=== PATIENT | male | born 1955 | race Native Hawaiian/Other Pacific Islander ===

== ENCOUNTER 2018-07-15 14:57 | Outpatient (CLI) | payer OTHER, BC ==
[2018-07-15 15:50] LABS: PLATELET COUNT 168 K/uL (142-355)
== END 2018-07-15 19:43 | disposition home or self-care (01) ==
LOC: LABW 14:57
PROVIDERS: Internal Medicine
DX: R50.9 Fever, unspecified (principal)
CPT/HCPCS: 36415; 80053; 85027; 85651; 86140; 87040; 87077; 87086; 87088; 87186; 87502

== ENCOUNTER 2019-10-21 08:14 | Outpatient (CLI) | payer OTHER, BC | END 2019-10-21 21:20 | disposition home or self-care (01) | LOC: LAB 08:14 | DX: Z20.828 Contact with and (suspected) exposure to other viral communicable diseases (principal) | CPT/HCPCS: 87635; G2023; U00003 ==

== ENCOUNTER 2021-05-09 12:08 | Outpatient (CLI) | payer BC, OTHER | END 2021-05-09 19:16 | disposition home or self-care (01) | LOC: LAB 12:08 | PROVIDERS: ATTEND Internal Medicine | DX: Z20.822 Contact with and (suspected) exposure to COVID-19 (principal) | CPT/HCPCS: 87635; G2023; U0003 ==

== ENCOUNTER 2022-01-18 07:33 | Outpatient (CLI) | payer BC | END 2022-01-18 18:56 | disposition home or self-care (01) | LOC: LABW 07:33 | PROVIDERS: ATTEND Internal Medicine | DX: R73.9 Hyperglycemia, unspecified (principal) | CPT/HCPCS: 36415; 82951; 82952; 83036 ==

== ENCOUNTER 2022-04-14 12:01 | Outpatient (CLI) | payer BC ==
[2022-04-14 13:02] LABS: POTASSIUM 3.8 mmol/L (3.6-5.2)
[2022-04-14 13:09] LABS: PLATELET COUNT 165 K/uL (142-355)
== END 2022-04-14 19:17 | disposition home or self-care (01) ==
LOC: LABW 12:01
PROVIDERS: ATTEND Internal Medicine
DX: N18.31 Chronic kidney disease, stage 3a (principal); R53.83 Other fatigue; E53.8 Deficiency of other specified B group vitamins; R79.89 Other specified abnormal findings of blood chemistry
CPT/HCPCS: 36415; 80053; 81002; 82043; 82306; 82330; 82570; 82607; 82728; 82746; 83036; 83540; 83550; 83735; 83970; 84100; 84156; 84439; 84443; 85027; 85652; 86038; 86431

== ENCOUNTER 2022-07-21 08:48 | Outpatient (CLI) | payer BC ==
[2022-07-21 09:03] LABS: PLATELET COUNT 168 K/uL (142-355)
[2022-07-21 09:20] LABS: POTASSIUM 3.9 mmol/L (3.6-5.2)
== END 2022-07-21 19:12 | disposition home or self-care (01) ==
LOC: LABW 08:48 → MRI 10:00 → LABW 19:12
PROVIDERS: ATTEND Internal Medicine
DX: R51.9 Headache, unspecified (principal)
CPT/HCPCS: 36415; 80053; 85027; 85652

== ENCOUNTER 2023-01-01 16:26 | Outpatient (CLI) | payer BC | END 2023-01-01 19:20 | disposition home or self-care (01) | LOC: RAD 16:26 | PROVIDERS: ATTEND Internal Medicine | DX: J40 Bronchitis, not specified as acute or chronic (principal) ==